=== PATIENT | female | born 1980 | race Caucasian/White ===

== ENCOUNTER 2017-03-19 13:18 | Inpatient (IN) | payer MEDICAID ==
[~2017-03-19] VITALS: Ht 157.5 cm; Wt 66.5 kg
[2017-03-19] MEDS ORDERED: LORazepam 2 MG TABLET PO ONE (15:30)
[2017-03-19 16:19] LABS: ANION GAP 7 mmol/L (8-16); CALCIUM, TOTAL 9.4 mg/dL (8.8-10.5); CARBON DIOXIDE 27 mmol/L (22-29); CHLORIDE 103 mmol/L (98-107); CREATININE 0.56 mg/dL (0.60-1.30); GLOMERULAR FILTR. RATE CALC > 60 mL/min (>60); POTASSIUM 4.1 mmol/L (3.5-5.1); SODIUM SERUM 137 mmol/L (136-145); UREA NITROGEN, BLOOD 7 mg/dL (7-18)
[2017-03-19 16:25] LABS: ALANINE AMINOTRANSFERASE 52 U/L (12-78); ALBUMIN 4.1 g/dL (3.4-5.0); ASPARTATE AMINOTRANSFERASE 26 U/L (15-37); BASOPHILS % (AUTO) 0.4 % (0.0-2.0); BILIRUBIN,TOTAL 0.5 mg/dL (0.1-1.0); EOSINOPHILS % (AUTO) 0.9 % (1.0-6.0); HEMATOCRIT 39.9 % (36-46); HEMOGLOBIN 13.9 g/dL (12.0-16.0); LYMPHOCYTES # (AUTO) 2.3 K/uL (1.0-4.8); LYMPHOCYTES % (AUTO) 23.2 % (22.0-44.0); MEAN CORPUSCULAR HEMOGLOBIN 31.9 pg (26.0-34.0); MEAN CORPUSCULAR HGB CONC 34.8 G/dL (31.0-37.0); MEAN CORPUSCULAR VOLUME 92 fL (80-100); MONOCYTES # (AUTO) 0.5 K/uL (0.1-1.0); MONOCYTES % (AUTO) 5.1 % (2.0-9.0); NEUTROPHILS # (AUTO) 7.1 K/uL (1.8-7.7); NEUTROPHILS % (AUTO) 70.4 % (40.0-70.0); PLATELET COUNT (AUTO) 385 K/uL (150-450); RED BLOOD CELL COUNT(AUTO) 4.36 MIL/uL (4.00-5.20); RED CELL DISTRIBUTION WIDTH 12.7 % (11.5-14.5); TOTAL PROTEIN, SERUM 8.2 g/dL (6.4-8.2); WHITE BLOOD COUNT (AUTO) 10.1 K/uL (4.5-11.0)
[2017-03-19] MEDS ORDERED: ZOLPIDEM TARTRATE 10 MG TABLET PO PRN (16:30)
[2017-03-19] MEDS ORDERED: LORazepam 2 MG TABLET PO PRN (16:30)
[2017-03-19] MEDS ORDERED: HALOPERIDOL 5 MG TABLET PO PRN (16:30)
[2017-03-19] MEDS ORDERED: ALBUTEROL SULFATE HFA 90 MCG/PUFF 8 GM INHALER IH PRN (20:30)
[2017-03-19 21:05] VITALS: BP 134/88
[2017-03-20 07:24] LABS: CHOL/HDL RATIO 3.1 (3.9-5.7)
[2017-03-20 08:15] VITALS: BP 136/82
[2017-03-20] MEDS: FLUoxetine HCL 20 MG CAPSULE PO SCH (10:23)
[2017-03-20] MEDS ORDERED: ACETAMINOPHEN 325 MG TABLET PO PRN (13:45)
[2017-03-20] MEDS ORDERED: IBUPROFEN 400 MG TABLET PO PRN (13:45)
[2017-03-20] MEDS ORDERED: ALBUTEROL SULFATE HFA 90 MCG/PUFF 8 GM INHALER IH PRN (13:45)
[2017-03-20 19:45] VITALS: BP 133/91
[2017-03-20] MEDS ORDERED: MIRTAZAPINE 15 MG TABLET PO SCH (21:00)
[2017-03-21 01:10] VITALS: BP 82/55
[2017-03-21 01:25] VITALS: BP 86/47
[2017-03-21 01:50] VITALS: BP 107/70
[2017-03-21 01:59] VITALS: BP 82/55
[2017-03-21] MEDS ORDERED: ONDANSETRON HCL 4 MG TABLET PO PRN (07:00)
[2017-03-21 07:10] VITALS: BP 101/54
[2017-03-21 08:30] VITALS: BP 133/92
[2017-03-21] MEDS: FLUoxetine HCL 20 MG CAPSULE PO SCH (09:32)
[2017-03-21] MEDS ORDERED: FLUO-191 PO (14:49)
[2017-03-21] MEDS ORDERED: MIRT15 PO (14:49)
== END 2017-03-21 16:15 | disposition home or self-care (01) | DRG 754 ==
LOC: EMS 13:21 → 3EI 16:44
PROVIDERS: ADMIT Psychiatry & Neurology Psychiatry; ATTEND Psychiatry & Neurology Child & Adolescent Psychiatry
DX: F32.9 Major depressive disorder, single episode, unspecified (principal); R45.851 Suicidal ideations; J45.909 Unspecified asthma, uncomplicated; F19.10 Other psychoactive substance abuse, uncomplicated; Z96.9 Presence of functional implant, unspecified
CPT/HCPCS: 71020; 81025; 93005; 99285; G0480

== ENCOUNTER 2017-09-14 12:23 | Emergency (ER) | payer MEDICAID, OTHER ==
[~2017-09-14] VITALS: Ht 157.5 cm; Wt 68.2 kg
[~2017-09-14 12:23] MED LIST: FLUO-191 PO; MIRT15 PO
[2017-09-14] MEDS ORDERED: AMLO-511 PO (13:40)
[2017-09-14 14:39] LABS: BASOPHILS % (AUTO) 0.2 % (0.0-2.0); EOSINOPHILS % (AUTO) 0.7 % (1.0-6.0); HEMATOCRIT 38.8 % (36-46); HEMOGLOBIN 13.7 g/dL (12.0-16.0); LYMPHOCYTES # (AUTO) 2.7 K/uL (1.0-4.8); LYMPHOCYTES % (AUTO) 25.2 % (22.0-44.0); MEAN CORPUSCULAR HEMOGLOBIN 31.7 pg (26.0-34.0); MEAN CORPUSCULAR HGB CONC 35.4 G/dL (31.0-37.0); MEAN CORPUSCULAR VOLUME 90 fL (80-100); MONOCYTES # (AUTO) 0.5 K/uL (0.1-1.0); MONOCYTES % (AUTO) 4.8 % (2.0-9.0); NEUTROPHILS # (AUTO) 7.4 K/uL (1.8-7.7); NEUTROPHILS % (AUTO) 69.1 % (40.0-70.0); PLATELET COUNT (AUTO) 371 K/uL (150-450); RED BLOOD CELL COUNT(AUTO) 4.32 MIL/uL (4.00-5.20); RED CELL DISTRIBUTION WIDTH 12.8 % (11.5-14.5)
[2017-09-14 14:47] LABS: ANION GAP 9 mmol/L (8-16); CALCIUM, TOTAL 8.5 mg/dL (8.8-10.5); CARBON DIOXIDE 27 mmol/L (22-29); CHLORIDE 104 mmol/L (98-107); CREATININE 0.64 mg/dL (0.60-1.30); GLOMERULAR FILTR. RATE CALC > 60 mL/min (>60); GLUCOSE,RANDOM 83 mg/dL (70-110); POTASSIUM 3.6 mmol/L (3.5-5.1); SODIUM SERUM 140 mmol/L (136-145); UREA NITROGEN, BLOOD 10 mg/dL (7-18)
[2017-09-14 14:53] LABS: ALANINE AMINOTRANSFERASE 36 U/L (12-78); ALBUMIN 3.8 g/dL (3.4-5.0); ALKALINE PHOSPHATASE 124 U/L (46-116); ASPARTATE AMINOTRANSFERASE 13 U/L (15-37); BILIRUBIN,TOTAL 0.4 mg/dL (0.1-1.0); TOTAL PROTEIN, SERUM 8.1 g/dL (6.4-8.2)
[2017-09-14] MEDS ORDERED: ACETAMINOPHEN 500 MG TABLET PO ONE (15:00)
[2017-09-14 15:12] LABS: B-TYPE NATRIURETIC PEPTIDE 6 pg/mL (0-100)
[2017-09-14 16:48] LABS: APPEARANCE,URINE CLEAR (CLEAR); BILIRUBIN,URINE NEGATIVE (NEGATIVE); GLUCOSE, URINE (UA) NEGATIVE (NEGATIVE); KETONES,URINE NEGATIVE (NEGATIVE); LEUKOCYTE ESTERASE ,URINE NEGATIVE (NEGATIVE); NITRATE,URINE NEGATIVE (NEGATIVE); OCCULT BLOOD,URINE NEGATIVE (NEGATIVE); PROTEIN,URINE NEGATIVE (NEGATIVE); UROBILINOGEN,URINE 0.2 mg/dL (<=1.0)
[2017-09-14 17:44] VITALS: BP 118/72
== END 2017-09-14 17:57 | disposition home or self-care (01) ==
LOC: EMS 12:25
DX: R51 Headache (principal); F41.9 Anxiety disorder, unspecified; R20.0 Anesthesia of skin
CPT/HCPCS: 70450; 93005; 99285

== ENCOUNTER 2018-05-16 18:34 | Emergency (ER) | payer SELFPAY ==
[~2018-05-16] VITALS: Ht 157.5 cm; Wt 68.2 kg
[~2018-05-16 18:34] MED LIST changes: +AMLO-511 PO; -FLUO-191 PO; -MIRT15 PO
[2018-05-16 18:46] VITALS: BP 140/70
[2018-05-16] MEDS ORDERED: ACETAMINOPHEN 500 MG TABLET PO ONE (19:45)
[2018-05-16] MEDS ORDERED: DiphenhydrAMINE/ZINC ACET 30 GM CREAM TP ONE (19:45)
[2018-05-16 20:29] LABS: RAPID GROUP A STREP NEGATIVE (NEGATIVE)
[2018-05-16 20:50] LABS: INFLUENZA TYPE A NEGATIVE FOR TYPE A (NEGATIVE); INFLUENZA TYPE B NEGATIVE FOR TYPE B (NEGATIVE)
== END 2018-05-16 21:04 | disposition home or self-care (01) ==
LOC: EMS 18:35
DX: R21 Rash and other nonspecific skin eruption (principal); J06.9 Acute upper respiratory infection, unspecified; M79.18 Myalgia, other site; F41.9 Anxiety disorder, unspecified; J45.909 Unspecified asthma, uncomplicated; F32.9 Major depressive disorder, single episode, unspecified
CPT/HCPCS: 87430; 87804

== ENCOUNTER 2018-09-26 12:08 | Emergency (ER) | payer SELFPAY ==
[~2018-09-26] VITALS: Ht 160 cm; Wt 68.2 kg
[2018-09-26] MEDS ORDERED: ALBU8HFA IH (12:17)
[2018-09-26] MEDS ORDERED: CefTRIAXone SODIUM 1 GM/VIAL IM ONE (14:30)
[2018-09-26] MEDS ORDERED: IBUPROFEN 600 MG TABLET PO ONE (14:30)
[2018-09-26] MEDS ORDERED: LIDOCAINE/PF 1% 2 ML VIAL IM ONE (14:30)
[2018-09-26 15:00] VITALS: BP 118/70
== END 2018-09-26 15:05 | disposition home or self-care (01) ==
LOC: EMS 12:10
DX: L03.115 Cellulitis of right lower limb (principal); J45.909 Unspecified asthma, uncomplicated; F32.9 Major depressive disorder, single episode, unspecified; F41.9 Anxiety disorder, unspecified
CPT/HCPCS: 96372; 99283; J0696; J3490

== ENCOUNTER 2019-01-26 14:00 | Emergency (ER) | payer OTHER ==
[~2019-01-26] VITALS: Ht 160 cm; Wt 68.2 kg
[~2019-01-26 14:00] MED LIST changes: +ALBU8HFA IH; -AMLO-511 PO
[2019-01-26 15:09] LABS: BASOPHILS % (AUTO) 0.1 % (0.0-2.0); HEMATOCRIT 37.9 % (36-46); HEMOGLOBIN 13.1 g/dL (12.0-16.0); LYMPHOCYTES # (AUTO) 2.3 K/uL (1.0-4.8); LYMPHOCYTES % (AUTO) 23.3 % (22.0-44.0); MEAN CORPUSCULAR HEMOGLOBIN 31.3 pg (26.0-34.0); MEAN CORPUSCULAR HGB CONC 34.6 G/dL (31.0-37.0); MEAN CORPUSCULAR VOLUME 90 fL (80-100); MONOCYTES # (AUTO) 0.5 K/uL (0.1-1.0); NEUTROPHILS # (AUTO) 7.1 K/uL (1.8-7.7); NEUTROPHILS % (AUTO) 70.6 % (40.0-70.0); PLATELET COUNT (AUTO) 367 K/uL (150-450); RED BLOOD CELL COUNT(AUTO) 4.19 MIL/uL (4.00-5.20); RED CELL DISTRIBUTION WIDTH 13.1 % (11.5-14.5)
[2019-01-26 15:17] LABS: ANION GAP 9 mmol/L (8-16); CALCIUM, TOTAL 9.1 mg/dL (8.8-10.5); CARBON DIOXIDE 26 mmol/L (22-29); CHLORIDE 104 mmol/L (98-107); CREATININE 0.65 mg/dL (0.60-1.30); GLOMERULAR FILTR. RATE CALC > 60 mL/min (>60); GLUCOSE,RANDOM 127 mg/dL (70-110); POTASSIUM 3.6 mmol/L (3.5-5.1); SODIUM SERUM 139 mmol/L (136-145); UREA NITROGEN, BLOOD 7 mg/dL (7-18)
[2019-01-26 15:28] LABS: ALANINE AMINOTRANSFERASE 33 U/L (12-78); ALBUMIN 3.8 g/dL (3.4-5.0); ALKALINE PHOSPHATASE 100 U/L (46-116); ASPARTATE AMINOTRANSFERASE 14 U/L (15-37); BILIRUBIN,TOTAL 0.3 mg/dL (0.1-1.0); HCG,QUANTITATIVE 90 mIU/mL (0-6); TOTAL PROTEIN, SERUM 7.7 g/dL (6.4-8.2)
[2019-01-26 16:24] VITALS: BP 129/69
== END 2019-01-26 16:44 | disposition home or self-care (01) ==
LOC: EMS 14:03
DX: O20.0 Threatened abortion (principal); J45.909 Unspecified asthma, uncomplicated; Z3A.08 8 weeks gestation of pregnancy
CPT/HCPCS: 76801; 76817; 86901

== ENCOUNTER 2019-01-29 11:24 | Emergency (ER) | payer OTHER ==
[~2019-01-29] VITALS: Ht 160 cm; Wt 72.7 kg
[2019-01-29 12:14] LABS: BASOPHILS % (AUTO) 0.5 % (0.0-2.0); EOSINOPHILS % (AUTO) 1.5 % (1.0-6.0); HEMATOCRIT 35.7 % (36-46); HEMOGLOBIN 12.1 g/dL (12.0-16.0); LYMPHOCYTES # (AUTO) 2.2 K/uL (1.0-4.8); LYMPHOCYTES % (AUTO) 28.6 % (22.0-44.0); MEAN CORPUSCULAR HEMOGLOBIN 30.8 pg (26.0-34.0); MEAN CORPUSCULAR VOLUME 91 fL (80-100); MONOCYTES # (AUTO) 0.5 K/uL (0.1-1.0); MONOCYTES % (AUTO) 6.4 % (2.0-9.0); NEUTROPHILS # (AUTO) 4.8 K/uL (1.8-7.7); PLATELET COUNT (AUTO) 313 K/uL (150-450); RED BLOOD CELL COUNT(AUTO) 3.94 MIL/uL (4.00-5.20)
[2019-01-29 13:46] VITALS: BP 118/77
== END 2019-01-29 13:50 | disposition home or self-care (01) ==
LOC: EMS 11:26
DX: O03.9 Complete or unspecified spontaneous abortion without complication (principal); J45.909 Unspecified asthma, uncomplicated; I10 Essential (primary) hypertension; Z3A.08 8 weeks gestation of pregnancy

== ENCOUNTER 2019-07-17 19:40 | Observation (INO) | payer OTHER ==
[~2019-07-17] VITALS: Ht 132.1 cm; Wt 81.6 kg
[2019-07-17 20:30] VITALS: BP 133/73
[2019-07-17] MEDS ORDERED: HydrOXYzine PAMOATE 50 MG CAPSULE PO ONE (20:30)
== END 2019-07-17 22:50 | disposition home or self-care (01) ==
LOC: 4S 19:40
PROVIDERS: ADMIT Obstetrics & Gynecology; ATTEND Obstetrics & Gynecology
DX: O60.02 Preterm labor without delivery, second trimester (principal); Z3A.20 20 weeks gestation of pregnancy
CPT/HCPCS: 59025; 76811; G0378

== ENCOUNTER 2019-10-11 12:25 | Observation (INO) | payer OTHER ==
[~2019-10-11] VITALS: Ht 157.5 cm; Wt 85.3 kg
[2019-10-11 15:22] VITALS: BP 120/72
== END 2019-10-11 15:30 | disposition home or self-care (01) ==
LOC: 4S 12:25
PROVIDERS: ADMIT Obstetrics & Gynecology; ATTEND Obstetrics & Gynecology
DX: Z03.818 Encounter for observation for suspected exposure to other biological agents ruled out (principal); O24.414 Gestational diabetes mellitus in pregnancy, insulin controlled; Z3A.32 32 weeks gestation of pregnancy; Z98.890 Other specified postprocedural states; Z79.4 Long term (current) use of insulin
CPT/HCPCS: 59025; 76811; 81001; 87635; G0378

== ENCOUNTER 2019-10-17 16:18 | Observation (INO) | payer OTHER ==
[2019-10-17 18:36] VITALS: BP 120/76
== END 2019-10-17 18:25 | disposition home or self-care (01) ==
LOC: 4S 16:18
PROVIDERS: ADMIT Obstetrics & Gynecology; ATTEND Obstetrics & Gynecology
DX: O62.9 Abnormality of forces of labor, unspecified (principal); O24.414 Gestational diabetes mellitus in pregnancy, insulin controlled; O99.213 Obesity complicating pregnancy, third trimester; Z3A.33 33 weeks gestation of pregnancy; Z79.4 Long term (current) use of insulin
CPT/HCPCS: 59025; 76811; G0378

== ENCOUNTER 2019-10-19 13:30 | Observation (INO) | payer OTHER ==
[~2019-10-19] VITALS: Ht 157.5 cm; Wt 85.7 kg
[2019-10-19 16:02] VITALS: BP 118/78
[2019-10-19] MEDS ORDERED: DOCU-275 PO (16:17)
[2019-10-19] MEDS ORDERED: INSREG SQ ×2 (16:17)
[2019-10-19] MEDS ORDERED: INSNPH SQ ×2 (16:17)
[2019-10-19] MEDS ORDERED: PREN-217 PO (16:17)
[2019-10-19 16:25] LABS: GLUCOMETER DEV NAME(LOC) 4S.; GLUCOSE,POINT OF CARE 95 MG/DL (70-110)
== END 2019-10-19 16:55 | disposition home or self-care (01) ==
LOC: 4S 13:30
PROVIDERS: ADMIT Obstetrics & Gynecology; ATTEND Obstetrics & Gynecology
DX: O24.419 Gestational diabetes mellitus in pregnancy, unspecified control (principal); Z3A.33 33 weeks gestation of pregnancy
CPT/HCPCS: 82962; G0378

== ENCOUNTER 2019-10-23 16:28 | Observation (INO) | payer OTHER ==
[~2019-10-23 16:28] MED LIST changes: +DOCU-275 PO; +INSNPH SQ; +INSREG SQ; +PREN-217 PO
[2019-10-23 16:57] LABS: GLUCOMETER DEV NAME(LOC) 4S.; GLUCOSE,POINT OF CARE 151 MG/DL (70-110)
[2019-10-23 17:08] VITALS: BP 119/77
== END 2019-10-23 17:50 | disposition home or self-care (01) ==
LOC: 4S 16:28
PROVIDERS: ADMIT Obstetrics & Gynecology; ATTEND Obstetrics & Gynecology
DX: Z03.818 Encounter for observation for suspected exposure to other biological agents ruled out (principal); O26.893 Other specified pregnancy related conditions, third trimester; Z3A.34 34 weeks gestation of pregnancy
CPT/HCPCS: 82962; 87635; G0378

== ENCOUNTER 2019-10-26 14:40 | Observation (INO) | payer OTHER ==
[2019-10-26 15:52] VITALS: BP 125/83
[2019-10-26] MEDS ORDERED: INSNPH SQ ×2 (16:36)
[2019-10-26] MEDS ORDERED: INSREG SQ ×2 (16:36)
[2019-10-26 19:33] LABS: GLUCOMETER DEV NAME(LOC) 4S.; GLUCOSE,POINT OF CARE 81 MG/DL (70-110)
== END 2019-10-26 16:05 | disposition home or self-care (01) ==
LOC: 4S 14:40
PROVIDERS: ADMIT Obstetrics & Gynecology; ATTEND Obstetrics & Gynecology
DX: O62.9 Abnormality of forces of labor, unspecified (principal); Z3A.34 34 weeks gestation of pregnancy
CPT/HCPCS: 82962; G0378

== ENCOUNTER 2019-10-30 15:20 | Observation (INO) | payer OTHER ==
[~2019-10-30] VITALS: Ht 157.5 cm; Wt 84.4 kg
[2019-10-30 16:03] VITALS: BP 122/81
[2019-10-31 11:13] LABS: GLUCOMETER DEV NAME(LOC) 4S.; GLUCOSE,POINT OF CARE 99 MG/DL (70-110)
== END 2019-10-30 16:50 | disposition home or self-care (01) ==
LOC: 4S 15:20
PROVIDERS: ADMIT Obstetrics & Gynecology; ATTEND Obstetrics & Gynecology
DX: O26.893 Other specified pregnancy related conditions, third trimester (principal); Z3A.35 35 weeks gestation of pregnancy
CPT/HCPCS: 82962; G0378

== ENCOUNTER 2019-11-02 16:10 | Observation (INO) | payer OTHER ==
[2019-11-02 16:41] VITALS: BP 113/67
[2019-11-02 18:04] LABS: GLUCOMETER DEV NAME(LOC) 4S.; GLUCOSE,POINT OF CARE 167 MG/DL (70-110)
== END 2019-11-02 20:21 | disposition home or self-care (01) ==
LOC: 4S 16:10
PROVIDERS: ADMIT Obstetrics & Gynecology; ATTEND Obstetrics & Gynecology
DX: O24.913 Unspecified diabetes mellitus in pregnancy, third trimester (principal); Z3A.35 35 weeks gestation of pregnancy
CPT/HCPCS: 36415; 82962; 89060; G0378

== ENCOUNTER 2019-11-06 16:49 | Observation (INO) | payer OTHER ==
[2019-11-06 17:05] VITALS: BP 126/73
[2019-11-06 17:24] LABS: GLUCOMETER DEV NAME(LOC) 4S.; GLUCOSE,POINT OF CARE 86 MG/DL (70-110)
== END 2019-11-06 18:45 | disposition home or self-care (01) ==
LOC: 4S 16:49
PROVIDERS: ADMIT Obstetrics & Gynecology; ATTEND Obstetrics & Gynecology
DX: O24.419 Gestational diabetes mellitus in pregnancy, unspecified control (principal); Z3A.36 36 weeks gestation of pregnancy
CPT/HCPCS: 59025; 81001; 82962; G0378

== ENCOUNTER 2019-11-09 16:25 | Observation (INO) | payer OTHER ==
[2019-11-09 17:00] VITALS: BP 120/79
== END 2019-11-09 18:25 | disposition home or self-care (01) ==
LOC: 4S 16:25
PROVIDERS: ADMIT Obstetrics & Gynecology; ATTEND Obstetrics & Gynecology
DX: O26.893 Other specified pregnancy related conditions, third trimester (principal); Z3A.36 36 weeks gestation of pregnancy
CPT/HCPCS: 36415; 76811; 83036; 87081; G0378

== ENCOUNTER 2019-11-13 17:00 | Observation (INO) | payer OTHER ==
[2019-11-13 17:40] LABS: GLUCOMETER DEV NAME(LOC) 4S.; GLUCOSE,POINT OF CARE 91 MG/DL (70-110)
== END 2019-11-13 18:45 | disposition home or self-care (01) ==
LOC: 4S 17:00
PROVIDERS: ADMIT Obstetrics & Gynecology Obstetrics; ATTEND Obstetrics & Gynecology Obstetrics
DX: O62.9 Abnormality of forces of labor, unspecified (principal); O22.43 Hemorrhoids in pregnancy, third trimester; O24.419 Gestational diabetes mellitus in pregnancy, unspecified control; Z3A.37 37 weeks gestation of pregnancy
CPT/HCPCS: 82962; G0378

== ENCOUNTER 2019-11-17 13:05 | Inpatient (IN) | payer OTHER ==
[~2019-11-17] VITALS: Ht 160 cm; Wt 86.9 kg
[2019-11-17] MEDS ORDERED: RINGERS SOLUTION,LACTATED 1,000 ML IV PRN (14:08)
[2019-11-17] MEDS ORDERED: RINGERS SOLUTION,LACTATED 1,000 ML IV SCH (14:08)
[2019-11-17] MEDS ORDERED: METHYLERGONOVINE MALEATE 0.2 MG/ML VIAL IM PRN (14:15)
[2019-11-17] MEDS ORDERED: LIDOCAINE/PF 1% 30 ML VIAL INJ PRN (14:15)
[2019-11-17] MEDS ORDERED: AMPICILLIN SODIUM 2 GM/NS 100 ML IV ONE (14:15)
[2019-11-17] MEDS ORDERED: CITRIC ACID/SODIUM CITRATE 30 ML SOLUTION UDCUP PO PRN (14:15)
[2019-11-17] MEDS ORDERED: FentaNYL CITRATE-PF 100 MCG/2 ML VIAL IVP PRN (14:15)
[2019-11-17] MEDS ORDERED: METOCLOPRAMIDE HCL 5 MG/ML 2 ML VIAL IVP PRN (14:15)
[2019-11-17] MEDS ORDERED: MISOPROSTOL 25 MCG TABLET PO ONE (14:15)
[2019-11-17 15:15] LABS: BASOPHILS % (AUTO) 0.3 % (0.0-2.0); EOSINOPHILS % (AUTO) 0.8 % (1.0-6.0); HEMATOCRIT 39.7 % (36-46); HEMOGLOBIN 13.5 g/dL (12.0-16.0); LYMPHOCYTES # (AUTO) 2.4 K/uL (1.0-4.8); LYMPHOCYTES % (AUTO) 31.2 % (22.0-44.0); MEAN CORPUSCULAR HEMOGLOBIN 30.9 pg (26.0-34.0); MEAN CORPUSCULAR HGB CONC 34.1 G/dL (31.0-37.0); MEAN CORPUSCULAR VOLUME 91 fL (80-100); MONOCYTES # (AUTO) 0.6 K/uL (0.1-1.0); MONOCYTES % (AUTO) 7.6 % (2.0-9.0); NEUTROPHILS # (AUTO) 4.7 K/uL (1.8-7.7); NEUTROPHILS % (AUTO) 60.1 % (40.0-70.0); PLATELET COUNT (AUTO)-OB 280 K/uL (150-450); RED BLOOD CELL COUNT(AUTO) 4.38 MIL/uL (4.00-5.20); RED CELL DISTRIBUTION WIDTH 14.4 % (11.5-14.5)
[2019-11-17 15:33] LABS: GLUCOMETER DEV NAME(LOC) 4S.; GLUCOSE,POINT OF CARE 66 MG/DL (70-110)
[2019-11-17 17:37] LABS: GLUCOMETER DEV NAME(LOC) 4S.; GLUCOSE,POINT OF CARE 71 MG/DL (70-110)
[2019-11-17] MEDS ORDERED: OXYTOCIN 30 UNITS/LACT RINGERS 500 ML IV PRN (18:22)
[2019-11-17] MEDS ORDERED: AMPICILLIN SODIUM 1 GM/NS 50 ML IV SCH (19:00)
[2019-11-17] MEDS ORDERED: OXYGEN THERAPY IH SCH (20:00)
[2019-11-17] MEDS ORDERED: ROPIVACAINE HCL/PF 0.2% 100 ML ED ONE (20:08)
[2019-11-17] MEDS ORDERED: ROPIVACAINE HCL/PF 0.2% 100 ML ED PRN (20:45)
[2019-11-17] MEDS ORDERED: DiphenhydrAMINE HCL 50 MG/ML VIAL IVP PRN (20:45)
[2019-11-17] MEDS ORDERED: ONDANSETRON HCL 4 MG/2 ML VIAL IVP PRN (20:45)
[2019-11-17] MEDS ORDERED: MISOPROSTOL 100 MCG TABLET PO ONE (21:23)
[2019-11-17] MEDS ORDERED: MISOPROSTOL 100 MCG TABLET ONE (21:24)
[2019-11-17] MEDS ORDERED: ACETAMINOPHEN 1000 MG/ISO-OSM 100 ML IV ONE ×2 (21:58→22:00)
[2019-11-17] MEDS ORDERED: GLYCERIN/WITCH HAZEL LEAF 40 PADS JAR TP PRN (22:15)
[2019-11-17] MEDS ORDERED: BENZOCAINE 20%/MENTHOL 56 GM SPRAY CANISTER TP PRN (22:15)
[2019-11-17] MEDS ORDERED: MEASLES/MUMPS/RUBELLA VACCINE, LIVE 0.5 ML/VIAL SQ ONE (22:15)
[2019-11-17] MEDS ORDERED: LANOLIN 7 GM OINTMENT TP PRN (22:15)
[2019-11-17] MEDS ORDERED: OxyCODONE HCL/ACETAMINOPHEN 5-325 MG TABLET PO PRN (22:15)
[2019-11-17] MEDS ORDERED: RINGERS SOLUTION,LACTATED 1,000 ML IV ONE (22:15)
[2019-11-18] MEDS: IBUPROFEN 600 MG TABLET PO PRN ×4 (02:28→22:34)
[2019-11-18 03:16] LABS: GLUCOMETER DEV NAME(LOC) 4S.; GLUCOSE,POINT OF CARE 77 MG/DL (70-110)
[2019-11-18] MEDS: OxyCODONE HCL/ACETAMINOPHEN 5-325 MG TABLET PO PRN ×3 (05:44→17:52)
[2019-11-18] MEDS: MAGNESIUM HYDROXIDE SUSPENSION 30 ML UDCUP PO SCH ×2 (08:40→22:34)
[2019-11-18 14:46] LABS: GLUCOMETER DEV NAME(LOC) 4S.; GLUCOSE,POINT OF CARE 152 MG/DL (70-110)
[2019-11-19] MEDS ORDERED: ACET-66 PO (09:16)
[2019-11-19] MEDS ORDERED: DOCU-275 PO (09:17)
[2019-11-19] MEDS ORDERED: IBUP-2070 PO (09:17)
== END 2019-11-19 10:55 | disposition home or self-care (01) | DRG 560 ==
LOC: 4S 13:05 → OBSVTOIN 13:05 → INTOOBSV 14:06 → OBSVTOIN 14:06
PROVIDERS: ADMIT Obstetrics & Gynecology; ATTEND Obstetrics & Gynecology
PROC: 10E0XZZ Delivery of Products of Conception, External Approach (ICD-10-PCS; principal; 2019-11-17)
PROC: 3E033VJ Introduction of Other Hormone into Peripheral Vein, Percutaneous Approach (ICD-10-PCS; 2019-11-17)
PROC: 3E0R3BZ Introduction of Anesthetic Agent into Spinal Canal, Percutaneous Approach (ICD-10-PCS; 2019-11-17)
PROC: 00HU33Z Insertion of Infusion Device into Spinal Canal, Percutaneous Approach (ICD-10-PCS; 2019-11-17)
DX: O24.429 Gestational diabetes mellitus in childbirth, unspecified control (principal); Z3A.38 38 weeks gestation of pregnancy; O69.81X0 Labor and delivery complicated by cord around neck, without compression, not applicable or unspecified; Z37.0 Single live birth; Z03.818 Encounter for observation for suspected exposure to other biological agents ruled out
CPT/HCPCS: 86850; 86900; 86901; 86920; 99219; J0131; J0290; J2590; J2795; J7120